=== PATIENT | female | born 1950 | race Caucasian/White ===

== ENCOUNTER → 2018-04-30 | Day surgery (SDC) | payer MEDICARE ==
[~2018-04-30] MED LIST: PROPOFOL 20 ML IV; PROPOFOL 40 ML IV
[2018-04-30] MEDS: IV RINGERS,LACTATED 1000ML 1,000 ML IV (07:00)
== END | disposition home or self-care (01) ==
LOC: ENDOS 09:38
DX: K64.0 First degree hemorrhoids (principal); K63.5 Polyp of colon; K31.811 Angiodysplasia of stomach and duodenum with bleeding; K21.0 Gastro-esophageal reflux disease with esophagitis; K29.50 Unspecified chronic gastritis without bleeding; D50.9 Iron deficiency anemia, unspecified; Z91.040 Latex allergy status; Z88.8 Allergy status to other drugs, medicaments and biological substances; E78.00 Pure hypercholesterolemia, unspecified; E11.9 Type 2 diabetes mellitus without complications; M19.90 Unspecified osteoarthritis, unspecified site; Z86.010 Personal history of colon polyps; J45.909 Unspecified asthma, uncomplicated; Z82.49 Family history of ischemic heart disease and other diseases of the circulatory system; Z82.3 Family history of stroke; Z83.3 Family history of diabetes mellitus; F17.210 Nicotine dependence, cigarettes, uncomplicated; Z72.89 Other problems related to lifestyle; Z79.82 Long term (current) use of aspirin; Z79.84 Long term (current) use of oral hypoglycemic drugs; Z79.899 Other long term (current) drug therapy; Z90.49 Acquired absence of other specified parts of digestive tract; Z98.890 Other specified postprocedural states; Z90.710 Acquired absence of both cervix and uterus; Z88.5 Allergy status to narcotic agent; Z95.5 Presence of coronary angioplasty implant and graft; Z86.718 Personal history of other venous thrombosis and embolism; I10 Essential (primary) hypertension; Z86.711 Personal history of pulmonary embolism
CPT/HCPCS: 43239; 45378; 45380; 88305; 88342; J2704